=== PATIENT | male | born 1980 | race African-American/Black ===

== ENCOUNTER 2018-02-17 22:52 | Inpatient (IN) | payer OTHER ==
[~2018-02-17] VITALS: Ht 175.3 cm; Wt 146.2 kg
[2018-02-17] MEDS ORDERED: MORPHINE SULFATE 2 MG/ML SYR IV STA (23:05)
[2018-02-17] MEDS ORDERED: ONDANSETRON HCL 4 MG ORAL DISINTEGRATING TAB PO ONE (23:15)
[2018-02-17 23:26] LABS: BASOPHILS # (AUTO) 0.1 (0.0-0.1); BASOPHILS % 0.7 % (0.0-1.0); EOSINOPHILS # (AUTO) 0.1 (0.0-0.4); EOSINOPHILS % 0.9 % (0.0-6.0); HEMATOCRIT 40.8 % (38.2-49.6); HEMOGLOBIN 13.5 g/dL (14.0-18.0); LYMPHOCYTES # (AUTO) 3.8 (1.0-3.2); LYMPHOCYTES % 43.8 % (18.0-39.1); MEAN CORPUSCULAR HGB CONC 33.1 g/dL (31-35); MEAN CORPUSCULAR VOLUME 87.6 fL (81-99); MONOCYTES # (AUTO) 0.7 (0.2-0.8); NEUTROPHILS % 46.4 % (38.7-80.0); PLATELET COUNT 352 x10e3/uL (140-360); RED BLOOD COUNT 4.66 x10e6/uL (4.3-5.7); RED CELL DISTRIBUTION WIDTH 14.2 % (11.7-14.4)
[2018-02-17 23:44] LABS: ALANINE AMINOTRANSFERASE 38 IU/L (0-55); ALBUMIN 3.6 g/dL (3.5-5.0); ALBUMIN/GLOBULIN RATIO 0.9 (0.8-2.0); ALKALINE PHOSPHATASE 69 IU/L (40-150); AMYLASE 52 U/L (25-125); ANION GAP 10.7 mmol/L (8-16); BLOOD UREA NITROGEN 14 mg/dL (7-26); BUN/CREATININE RATIO 11 (6-25); CALCIUM 9.1 mg/dL (8.4-10.2); CARBON DIOXIDE 26 mmol/L (22-29); CHLORIDE 106 mmol/L (98-107); CREATINE KINASE 1039 IU/L (30-200); CREATININE, SERUM 1.22 mg/dL (0.72-1.25); EST GLOMERULAR FILTRATION RATE > 60 ML/MIN (60-); GLUCOSE 94 mg/dL (74-118); LIPASE 51 U/L (8-78); POTASSIUM 3.7 mmol/L (3.5-5.1); SODIUM 139 mmol/L (136-145)
--- NOTE | 2018-02-18 00:35 | Diagnostic Imaging Report ---
CHEST SINGLE (PORTABLE), 02/17/2018 10:55 PM Technique: CHEST SINGLE (PORTABLE) Comparison: None Clinical history: Chest pain Findings: Unremarkable appearance of the heart, mediastinum, lungs and pleural spaces. Impression: 1. Lines/Tubes: None 2. No acute abnormality. Signed by: Dr Carol Hernandez MD on 02/18/2018 12:31 AM
--- NOTE | 2018-02-18 00:39 | Diagnostic Imaging Report ---
EXAM: US GALLBLADDER DATE: 02/17/2018 12:00 AM INDICATION: , Right upper quadrant pain after eating COMPARISON: None TECHNIQUE: Transverse and longitudinal michelle scale and color doppler sonographic images of the upper abdomen were obtained. FINDINGS: Examination is degraded by large body habitus and overlying bowel gas. LIVER Poorly visualized 14.9 cm in the right midclavicular line. Increased echogenicity, normal contour, no masses. GALLBLADDER Cholelithiasis with gallstone lodged at the gallbladder neck. Associated gallbladder wall thickening (4 to 5 mm). No pericholecystic fluid. Negative sonographic Tucker's sign. BILE DUCTS No intra nor extra-hepatic biliary dilation. Common bile duct measures cm PANCREAS: Visualized portions are normal. RIGHT KIDNEY: 11.7 cm Echogenicity: Normal Collecting System: No hydronephrosis Stones: None Cyst/Mass: None VESSELS: Aorta: Not well-visualized Inferior Vena Cava: Not well visualized Main Portal Vein: 0.8 cm, hepatopetal flow. FREE FLUID: None IMPRESSION: 1. Gallstone at the gallbladder neck with gallbladder wall thickening but negative for pericholecystic fluid or Tucker's sign. Findings could reflect early acute cholecystitis in the proper clinical context. Consider HIDA for further evaluation. 2. Hepatic steatosis. Signed by: Dr Carol Hernandez MD on 02/18/2018 12:36 AM
--- NOTE | 2018-02-18 00:53 | Diagnostic Imaging Report ---
EXAM: CT CHEST W DATE: 02/17/2018 11:51 PM INDICATION: Right-sided chest pain COMPARISON: None TECHNIQUE: Multidetector CT scanning of the chest was performed. Coronal and sagittal multiplanar reformations were obtained. IV Contrast: 100 ml Isovue 370/300 FINDINGS: Evaluation degraded by suboptimal contrast bolus and noise related to body habitus. This precludes optimal assessment for detection of pulmonary embolism particularly at the segmental/subsegmental level. However no acute central pulmonary embolism is seen to the lobar level. Main pulmonary artery is normal in size. LUNGS AND PLEURA: No consolidations or edema. No effusions or pneumothorax. HEART, MEDIASTINUM, VESSELS: Heart size is upper limits of normal. No pericardial effusion. No adenopathy. There is a 2.1 x 2.8 cm left lower parathoracic cystic lesion (HU 18). UPPER ABDOMEN: Unremarkable. MUSCULOSKELETAL: No acute findings. IMPRESSION: 1. Degraded by noise and suboptimal contrast bolus. No evidence of acute central pulmonary embolism. 2. 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 Consider follow-up CT or MRI to document stability. Signed by: Dr Carol Hernandez MD on 02/18/2018 12:49 AM
[2018-02-18 01:02] LABS: BILIRUBIN,URINE NEGATIVE (NEGATIVE); CLARITY,URINE CLEAR (CLEAR); COLOR,URINE YELLOW (YELLOW); KETONES,URINE NEGATIVE (NEGATIVE); LEUKOCYTE ESTERASE ,URINE NEGATIVE (NEGATIVE); NITRITE,URINE NEGATIVE (NEGATIVE); PROTEIN,URINE DIPSTICK NEGATIVE (NEGATIVE); URINE UROBILINOGEN 0.2 mg/dL (0.2 - 1)
[2018-02-18] MEDS ORDERED: DEXTROSE 50% SYRINGE 50 ML IV PRN (01:15)
--- OUTSIDE RECORDS SUMMARY | 2018-02-18 01:17 | XMS REPORT ---
Author Author [facility] Address Unknown Phone Unavailable Care Team Providers Care Email Engineer Name Role Phone FATOUMATA MCKENNA Unavailable Unavailable Problems This patient has no known problems. Allergies, Adverse Reactions, Alerts This patient has no known allergies or adverse reactions. Medications This patient has no known medications. Results Test Description Test Time Test Comments Text Results Atomic Results Result Comments CT CHEST W [place] [address] Patient Name: KELLY PEREZ MR #: [id number] : 1980 Age/Sex: 37/M Req # : [id number] Adm Physician: Ordered by: FATOUMATA MCKENNA MD Report # : [id number] Location: ER Room/Bed: Procedure: [id number] CT/CT CHEST W Exam Date: 02/18/18 Exam Time: 2358 REPORT STATUS: Signed EXAM: CT CHEST W DATE: 02/17/2018 11:51 PM INDICATION: Right-sided chest pain COMPARISON: None TECHNIQUE: Multidetector CT scanning of the chest was performed. Coronal and sagittal multiplanar reformations were obtained. IV Contrast: 100 ml Isovue 370/ 300 FINDINGS: Evaluation degraded by suboptimal contrast bolus and noise related to body habitus. This precludes optimal assessment for detection of pulmonary embolism particularly at the segmental/subsegmental level. However no acute central pulmonary embolism is seen to the lobar level. Main pulmonary artery is normal in size. LUNGS AND PLEURA: No consolidations or edema. No effusions or pneumothorax. HEART, MEDIASTINUM, VESSELS: Heart size is upper limits of normal. No pericardial effusion. No adenopathy. There is a 2.1 x 2.8 cm left lower parathoracic cystic lesion (HU 18). UPPER ABDOMEN: Unremarkable. MUSCULOSKELETAL: No acute findings. IMPRESSION: 1. Degraded by noise and suboptimal contrast bolus. No evidence of acute central pulmonary embolism. 2. 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 Consider follow-up CT or MRI to document stability. Signed by: Dr Ha Hernandez MD on 02/18/2018 12: 49 AM Dictated By: HA HERNANDEZ MD Transcribed By: LORETO on 02/18/1848 COPY TO: FATOUMATA MCKENNA MD CHEST SINGLE (PORTABLE) [place] [address] Patient Name: KELLY PEREZ MR #: [id number] : 1980 Age/Sex: 37/M Req #: [id number] Adm Physician: Ordered by: FATOUMATA MCKENNA MD Report #: [id number] Location: ER Room/Bed: ___ Procedure: [id number] DX/CHEST SINGLE (PORTABLE) Exam Date: 02/17/18 Exam Time: 2322 REPORT STATUS: Signed CHEST SINGLE (PORTABLE), 02/17/2018 10:55 PM Technique: CHEST SINGLE (PORTABLE) Comparison: None Clinical history: Chest pain Findings: Unremarkable appearance of the heart, mediastinum, lungs and pleural spaces. Impression : 1. Lines/Tubes: None 2. No acute abnormality. Signed by: Dr Ha Hernandez MD on 02/18/2018 12:31 AM Dictated By: HA HERNANDEZ MD Transcribed By: LORETO on 02/18/1830 COPY TO: FATOUMATA MCKENNA MD US GALLBLADDER [place] [address] Patient Name: KELLY PEREZ MR #: [id number] : 1980 Age/Sex: 37/M Req # : [id number] Adm Physician: Ordered by: FATOUMATA MCKENNA MD Report # : [id number] Location: ER Room/Bed: Procedure: [id number] US/US GALLBLADDER Exam Date: Exam Time: REPORT STATUS: Signed EXAM: US GALLBLADDER DATE: 02/17/2018 12:00 AM INDICATION: , Right upper quadrant pain after eating COMPARISON: None TECHNIQUE: Transverse and longitudinal michelle scale and color doppler sonographic images of the upper abdomen were obtained. FINDINGS: Examination is degraded by large body habitus and overlying bowel gas. LIVER Poorly visualized 14.9 cm in the right midclavicular line. Increased echogenicity, normal contour, no masses. GALLBLADDER Cholelithiasis with gallstone lodged at the gallbladder neck. Associated gallbladder wall thickening (4 to 5 mm). No pericholecystic fluid. Negative sonographic Tucker's sign. BILE DUCTS No intra nor extra-hepatic biliary dilation. Common bile duct measures cm PANCREAS: Visualized portions are normal. RIGHT KIDNEY : 11.7 cm Echogenicity: Normal Collecting System: No hydronephrosis Stones: None Cyst/Mass: None VESSELS: Aorta: Not well-visualized Inferior Vena Cava: Not well visualized Main Portal Vein: 0.8 cm, hepatopetal flow. FREE FLUID: None IMPRESSION: 1. Gallstone at the gallbladder neck with gallbladder wall thickening but negative for pericholecystic fluid or Tucker's sign. Findings could reflect early acute cholecystitis in the proper clinical context. Consider HIDA for further evaluation. 2. Hepatic steatosis. Signed by: Dr Ha Hernandez MD on 12:36 AM Dictated By: HA HERNANDEZ MD Transcribed By: LORETO on 02/18/1835 COPY TO: FATOUMATA MCKENNA MD
[2018-02-18 01:21] LABS: BACTERIA,URINE RARE /HPF; EPITHELIAL CELLS,URINE RARE /LPF; RBC,URINE 0-5 /HPF (0-5)
[2018-02-18] MEDS ORDERED: PROMETHAZINE 12.5MG/ NACL 0.9% 12.5 MG/50 ML BAG IV PRN (01:45)
[2018-02-18 01:50] VITALS: BP 125/58
[2018-02-18 02:00] VITALS: BP 125/58
[2018-02-18] MEDS: CEFOXITIN 1GM/ DEXTROSE 50ML 50 ML IV SCH ×2 (02:03→05:34)
[2018-02-18] MEDS: SODIUM CHLORIDE 0.9% 1000ML 1,000 ML IV SCH ×3 (02:03→20:47)
[2018-02-18] MEDS ORDERED: IOPAMIDOL 370 MG/ML 200 ML INFUS..BTL INJ ONE (02:32)
[2018-02-18] MEDS ORDERED: SODIUM CHLORIDE 0.9% 50ML 50 ML ONE (02:32)
[2018-02-18] MEDS: METRONIDAZOLE 500MG/NS 100ML 100 ML IV SCH ×4 (02:40→17:51)
[2018-02-18] MEDS: HYDROMORPHONE 1MG/1ML INJ IV PRN (04:52)
--- NOTE | 2018-02-18 07:03 | Consultation ---
DATE OF CONSULTATION: February 18, 2018 Patient is a 37-year-old male who came to the hospital with complaints of epigastric abdominal pain. Says the pain started yesterday about an hour after eating. He has not had similar pains in the past. He says he feels better now. Ultrasound of the gallbladder was done, which revealed gallstones with a stone impacted in the neck of the gallbladder. There are no symptoms of jaundice. PAST MEDICAL HISTORY: Otherwise unremarkable. He denies chronic medical problems. He has had previous knee surgery, tonsillectomy. Significant for hypertension, diabetes, previous diverticulitis. MEDICATIONS: Listed in the chart. ALLERGIES: HE HAS NO KNOWN ALLERGIES. FAMILY HISTORY: Noncontributory. SOCIAL HISTORY: Patient does not smoke cigarettes or drink alcohol. REVIEW OF SYSTEMS: As stated above. He has had no fever and no weight loss. PHYSICAL EXAMINATION GENERAL: The patient is awake, alert and in no distress. VITALS: Normal. HEENT: Unremarkable. Sclerae are nonicteric. NECK: Supple with no masses. LUNGS: Equal breath sounds are clear bilaterally. CARDIAC: Regular rate and rhythm. ABDOMEN: Soft. There slight epigastric tenderness. There is no mass. There is no organomegaly. EXTREMITIES: Have no edema. NEUROLOGIC: Grossly intact. LAB TESTS: The white blood cell count is normal. Hemoglobin and hematocrit are normal. Chemistries reveal elevated creatinine kinase of 1000. Liver function tests are normal. Amylase and lipase are normal. ASSESSMENT: A 37-year-old male with symptoms suggestive of acute cholecystitis, but now he seems somewhat better. He is to be evaluated by medicine, and would likely benefit from cholecystectomy. Tentatively, plan to schedule the surgery for tomorrow. Procedure was explained to the patient, including risks, benefits and alternatives. He understands the procedures, and had the opportunity to ask questions. He is aware of the possible need for open surgery. Thank you for asking me to see Mr. Jimenez. Job#: [id number] SATYA
[2018-02-18] MEDS ORDERED: TRIAMTERENE-HCTZ1 EA PO (07:08)
[2018-02-18] MEDS: INSULIN REGULAR, HUMAN 100 UNIT/1 ML 3ML VIAL SQ SCH ×4 (07:30→20:42)
[2018-02-18 07:55] VITALS: BP 94/54
--- NOTE | 2018-02-18 10:30 | History and Physical ---
CHIEF COMPLAINT: Abdominal pain. HISTORY: Patient is a 37-year-old male with abdominal pain going on for a few days. The patient came in with severe pain of 8/10. Patient has multiple workups done. His imaging test gallbladder ultrasound showing that he has gallstone at the gallbladder neck with gallbladder wall thickening, negative for pericholecystic fluid, however. The patient does have hepatic steatosis. On evaluation, the patient does have pain. Has CT of the chest also done as well, there was no pulmonary embolism. The patient is otherwise stable at this time. Laboratory showing that his white cell count was 8.5. Urinalysis unremarkable. Patient does have some persistent pain. PAST MEDICAL HISTORY: Borderline diabetes, hypertension. PAST SURGICAL HISTORY: Noncontributory except for knee surgery. SOCIAL HISTORY: Patient does not smoke or use alcohol. No recreational drug use. ALLERGIES: NO KNOWN ALLERGIES. HOME MEDICATIONS: Dyazide. REVIEW OF SYSTEMS: As mentioned. PHYSICAL EXAMINATION: VITAL SIGNS: Temperature is 98, blood pressure 94/54, pulse rate is 48, respiration 18. GENERAL: The patient is not in acute distress. He is awake. HEENT: Normocephalic, atraumatic. Sclerae anicteric. NECK: Supple grossly. PULMONARY: Diminished breath sounds bilaterally without any wheezing or rales. CARDIOVASCULAR: S1, S2. Regular rate and rhythm. ABDOMEN: Soft. Right upper quadrant tenderness. No rebound or guarding. EXTREMITIES: No gross cyanosis or edema. NEUROLOGIC: There is no gross focal deficit. LABORATORY: Sodium is 139, potassium 3.7, chloride 106, bicarb 25, BUN 14, creatinine 1.2, glucose 94. WBC is 8.6, hemoglobin 13.5, hematocrit 41, platelets is 352,000. IMPRESSION: 1. Acute cholecystitis associated with gallstone. 2. Nausea and vomiting. 3. Abdominal pain. 4. Low blood pressure secondary to dehydration. PLAN: IV fluids gently. Hold off on blood pressure medication. Antibiotics. Consultation with Dr. Kar Johnson. Will monitor patient closely. Job#: [id number]
[2018-02-18 12:00] VITALS: BP 97/55
[2018-02-18] MEDS: CEFOXITIN SOD 1 GM VIAL IV SCH ×2 (14:25→20:47)
[2018-02-18 16:00] VITALS: BP 123/57
[2018-02-18 20:00] VITALS: BP 121/74
[2018-02-19] VITALS (10 sets, daily range): BP systolic 112–138; BP diastolic 45–78
[2018-02-19] MEDS: METRONIDAZOLE 500MG/NS 100ML 100 ML IV SCH ×4 (01:15→17:48)
[2018-02-19] MEDS: CEFOXITIN SOD 1 GM VIAL IV SCH ×3 (05:46→21:36)
[2018-02-19 06:42] LABS: BASOPHILS # (AUTO) 0.1 (0.0-0.1); BASOPHILS % 0.8 % (0.0-1.0); EOSINOPHILS # (AUTO) 0.1 (0.0-0.4); EOSINOPHILS % 1.3 % (0.0-6.0); HEMATOCRIT 38.4 % (38.2-49.6); HEMOGLOBIN 12.5 g/dL (14.0-18.0); LYMPHOCYTES # (AUTO) 3.2 (1.0-3.2); MEAN CORPUSCULAR HEMOGLOBIN 29.3 pg (28-32); MEAN CORPUSCULAR HGB CONC 32.6 g/dL (31-35); MEAN CORPUSCULAR VOLUME 90.1 fL (81-99); MONOCYTES # (AUTO) 0.4 (0.2-0.8); MONOCYTES % 6.5 % (4.4-11.3); NEUTROPHILS # (AUTO) 2.4 (2.1-6.9); NEUTROPHILS % 39.2 % (38.7-80.0); PLATELET COUNT 344 x10e3/uL (140-360); RED BLOOD COUNT 4.26 x10e6/uL (4.3-5.7); RED CELL DISTRIBUTION WIDTH 14.2 % (11.7-14.4)
[2018-02-19 07:15] LABS: ALANINE AMINOTRANSFERASE 33 IU/L (0-55); ALBUMIN 2.9 g/dL (3.5-5.0); ALBUMIN/GLOBULIN RATIO 0.8 (0.8-2.0); ALKALINE PHOSPHATASE 57 IU/L (40-150); AMYLASE 53 U/L (25-125); ANION GAP 8.8 mmol/L (8-16); BLOOD UREA NITROGEN 9 mg/dL (7-26); BUN/CREATININE RATIO 8 (6-25); CALCIUM 8.7 mg/dL (8.4-10.2); CARBON DIOXIDE 24 mmol/L (22-29); CHLORIDE 108 mmol/L (98-107); CREATININE, SERUM 1.06 mg/dL (0.72-1.25); EST GLOMERULAR FILTRATION RATE > 60 ML/MIN (60-); GLUCOSE 85 mg/dL (74-118); LIPASE 51 U/L (8-78); POTASSIUM 3.8 mmol/L (3.5-5.1); SODIUM 137 mmol/L (136-145)
[2018-02-19] MEDS: INSULIN REGULAR, HUMAN 100 UNIT/1 ML 3ML VIAL SQ SCH ×4 (07:30→21:00)
[2018-02-19] MEDS: SODIUM CHLORIDE 0.9% 1000ML 1,000 ML IV SCH ×2 (11:28→16:03)
[2018-02-19] MEDS ORDERED: BUPIVACAINE HCL 0.5% INJ 30 ML VIAL INJ ONE (12:09)
[2018-02-19] MEDS ORDERED: MORPHINE SULFATE 5 MG/ML VIAL IV PRN (15:15)
[2018-02-19] MEDS ORDERED: MORPHINE SULFATE 2 MG/ML SYR IV PRN (15:15)
[2018-02-19] MEDS ORDERED: ONDANSETRON HCL INJ 2 MG/ML VIAL IV PRN (15:15)
[2018-02-19] MEDS ORDERED: HYDROCODONE/APAP 7.5MG-325MG 1 EA TAB PO PRN (15:15)
[2018-02-19] MEDS ORDERED: FENTANYL CITRATE/PF 100MCG/2 ML INJ ONE ×2 (15:39→17:38)
--- NOTE | 2018-02-19 15:39 | Operative Report ---
DATE OF PROCEDURE: February 19, 2018 PREOPERATIVE DIAGNOSIS: Acute and chronic cholecystitis, cholelithiasis. POSTOPERATIVE DIAGNOSIS: Acute and chronic cholecystitis, cholelithiasis. PROCEDURE: Diagnostic laparoscopy and laparoscopic cholecystectomy. CLINICAL OPERATIONS SPECIALIST: None. ANESTHESIA: General endotracheal. INDICATIONS AND FINDINGS: Patient is a 37-year-old male who was admitted with complaints of abdominal pain. Workup revealed gallstones. At surgery patient found to have gallbladder was distended, containing multiple stones. Cystic duct was about 3 mm in diameter. Common bile duct was about 6 mm in diameter. Liver, stomach, lower abdomen all appeared normal. TECHNIQUE: After adequate general endotracheal anesthesia patient in supine position, the abdomen was prepped and draped in sterile fashion with [employer] solution. Skin in the umbilicus was infiltrated with 1/2 percent Marcaine. Incision made in the umbilicus. Abdominal wall was elevated and Veress needle was introduced. Pneumoperitoneum was then created. A 10 mm trocar and cannula was then passed through the umbilical wound. Laparoscopic camera was introduced. Initial laparoscopy revealed liver, stomach, lower abdomen all appeared normal. A 10 mm trocar and cannula was placed in the epigastrium and two 5 mm trocars and cannulas placed in right upper quadrant. These were placed under direct vision. Fundus of the gallbladder was grasped and retracted superiorly. Neck of the gallbladder was grasped retracted laterally. Peritoneum over the neck of the gallbladder was incised. Gallbladder cystic duct junction was dissected free. Cystic artery was also dissected free. The neck of the gallbladder completely dissected free. Cystic duct was divided between Hemoclips with 3 clips being left on the common bile duct side. Cystic artery was also divided between Hemoclips close to the gallbladder. The gallbladder was dissected free from the liver using scissors and electrocautery. Once was entirely free it was placed into an Endo pouch and brought through the epigastric cannula, contained multiple stones. Gallbladder bed was inspected for hemostasis which was seen to be adequate. Irrigated with saline. All fluid aspirated. Inspected once again for hemostasis which was seen to be adequate. Instruments and cannulas were then removed. Pneumoperitoneum was evacuated. Wounds were then closed. Fascia in the umbilical and epigastric wound closed with 0 Vicryl. Skin to all wounds closed with donny. Sterile dressings applied to each wound. Patient tolerated procedure well. Estimated blood loss was 10 mL. There were no complications. All counts were correct. Patient was taken to the recovery room in satisfactory condition. Job#: [id number] HOMERO
[2018-02-19] MEDS: HYDROMORPHONE 1MG/1ML INJ IV PRN (16:15)
[2018-02-19] MEDS ORDERED: ROCURONIUM BROMIDE 10 MG/ML 5ML VIAL ONE (17:24)
[2018-02-19] MEDS ORDERED: PROPOFOL IV EMULSION 10 MG/ML 20 ML VIAL ONE (17:24)
[2018-02-19] MEDS ORDERED: ONDANSETRON HCL INJ 2 MG/ML VIAL ONE (17:24)
[2018-02-19] MEDS ORDERED: LIDOCAINE HCL 2% LOCAL INJ 5 ML SDV VIAL INJ ONE (17:24)
[2018-02-19] MEDS ORDERED: NEOSTIGMINE 5 MG/5ML SYR ONE (17:24)
[2018-02-19] MEDS ORDERED: SEVOFLURANE INHAL SOLN 250 ML PEN BTL ONE (17:24)
[2018-02-19] MEDS ORDERED: DEXAMETHASONE SOD PHOS INJ 4 MG/ML VIAL ONE (17:24)
[2018-02-19] MEDS ORDERED: LIDOCAINE HCL 2% JELLY 5 ML TUBE ONE (17:24)
[2018-02-19] MEDS ORDERED: GLYCOPYRROLATE INJ 1MG/ 5 ML SYR ONE (17:24)
[2018-02-19] MEDS ORDERED: MIDAZOLAM HCL 2 MG/2 ML VIAL ONE (17:38)
[2018-02-20] VITALS: BP 106/58
[2018-02-20] MEDS: METRONIDAZOLE 500MG/NS 100ML 100 ML IV SCH ×3 (00:23→12:00)
[2018-02-20 04:00] VITALS: BP 127/67
[2018-02-20] MEDS: SODIUM CHLORIDE 0.9% 1000ML 1,000 ML IV SCH ×2 (04:02→11:07)
[2018-02-20] MEDS: CEFOXITIN SOD 1 GM VIAL IV SCH (05:52)
[2018-02-20] MEDS: INSULIN REGULAR, HUMAN 100 UNIT/1 ML 3ML VIAL SQ SCH ×2 (07:30→11:30)
[2018-02-20 08:00] VITALS: BP 133/92
[2018-02-20 10:15] VITALS: BP 133/92
--- NOTE | 2018-02-20 15:24 | Discharge Summary ---
PRIMARY CARE PHYSICIAN: Unassigned. PACKING CHECKER: Dr. Kar Johnson. FINAL DIAGNOSES 1. Gallstone and acute cholecystitis associated with abdominal pain, nausea, vomiting, and dehydration. 2. Status post dehydration with low blood pressure, resolved. SUMMARY: A 37-year-old male with hypertension on diuretic, came in with acute cholecystitis associated with gallstone, has dehydration. Blood pressure was low. The patient was given multiple bolus of IV fluids and on antibiotic, Mefoxin. Patient is doing much better. He is stable. The patient received laparoscopic cholecystectomy on February 19, 2018. Postop, the patient is stable. He is now tolerating all his diet. Blood pressure is much improved. Patient is stable. He will go home today. Discharge with Ultracet as needed, Questran as needed, and Zofran as needed. He will resume his blood pressure medication. The patient is stable. Follow up with Dr. Kar Johnson next week. Two weeks of bland diet and then regular diet subsequently. Job#: [id number] VAS
== END 2018-02-20 13:05 | disposition home or self-care (01) | DRG 419 ==
LOC: ER 22:52 → MED/SURG2 02-18 01:15
PROVIDERS: ADMIT Internal Medicine; ATTEND Internal Medicine
PROC: 0FT44ZZ Resection of Gallbladder, Percutaneous Endoscopic Approach (ICD-10-PCS; principal; 2018-02-19 13:30)
DX: K80.12 Calculus of gallbladder with acute and chronic cholecystitis without obstruction (principal); I10 Essential (primary) hypertension; E86.0 Dehydration; E11.9 Type 2 diabetes mellitus without complications
CPT/HCPCS: 36415; 71045; 71260; 76705; 80053; 81001; 82150; 82550; 82553; 82948; 83690; 84484; 85025; 85379; 88304; 93005; 99284; J0694; J1100; J1170; J2001; J2250; J2270; J2405; J2550; J7030; Q9967